=== PATIENT | male | born 1985 | race Caucasian/White ===

== ENCOUNTER → 2024-10-19 | Outpatient (CLI) | payer MEDICARE, OTHER | LOC: M CLY 13:26 | PROVIDERS: ATTEND Physician Assistant Medical | DX: M54.50 Low back pain, unspecified (principal) ==

== ENCOUNTER → 2024-12-08 | Outpatient (REF) | payer MEDICARE, OTHER ==
[2024-12-08 17:39] LABS: BASO # 0.1 10^3/uL (0.0-0.2); BASO % 0.9 % (0.0-1.0); EOS # 0.0 10^3/uL (0.0-0.5); EOS % 0.3 % (0.0-3.0); LYMPH # 1.0 10^3/uL (1.5-5.0); LYMPH % 13.4 % (24.0-44.0); MONO # 0.5 10^3/uL (0.0-0.8); MONO % 6.8 % (2.0-8.0); NEUTROPHILS # 6.0 10^3/uL (1.5-8.5); NEUTROPHILS % 78.3 % (36.0-66.0); PLATELET COUNT, AUTOMATED 215 10^3/uL (150-450)
[2024-12-08 17:41] LABS: IRON (FE) 50 UG/DL (65-175); PERCENT SATURATION 12.6 % (19.7-50.0)
[2024-12-08 17:44] LABS: VITAMIN B12 LEVEL 1395 PG/ML (211-911)
== END ==
LOC: M SFHCCAPE 07:26
PROVIDERS: ATTEND Physician Assistant Medical
DX: D64.9 Anemia, unspecified (principal)

== ENCOUNTER 2025-02-19 07:36 | Day surgery (SDC) | payer MEDICARE, OTHER ==
[~2025-02-19] VITALS: Ht 162.6 cm; Wt 80.3 kg
[~2025-02-19 07:36] MED LIST: ACET650T61 PO; ALLE180T33 PO; D32000TA2 PO; GREEN VIBRANCE PO; LIDOCAINE 2% 100 MG/5 ML SDV (FOR ANES.) As Ordered ONE; MAGN400C2 PO; OMEP40CA4 PO; PEPE50CA PO; [UNRECOGNIZED DRUG - CODE] PO; [UNRECOGNIZED DRUG - CODE] PO; [UNRECOGNIZED DRUG - REMARK] PO; [UNRECOGNIZED DRUG - REMARK] PO; medical marijuana
[2025-02-19 09:35] VITALS: TEMP 97.2
[2025-02-19 10:04] VITALS: BP 123/83; O2SAT 97
== END 2025-02-19 10:12 | disposition home or self-care (01) ==
LOC: M OPP 07:36
PROVIDERS: ATTEND Surgery
DX: K55.20 Angiodysplasia of colon without hemorrhage (principal); B96.81 Helicobacter pylori [H. pylori] as the cause of diseases classified elsewhere; D50.9 Iron deficiency anemia, unspecified; K22.89 Other specified disease of esophagus; K31.89 Other diseases of stomach and duodenum; K31.819 Angiodysplasia of stomach and duodenum without bleeding; R10.13 Epigastric pain; Z88.2 Allergy status to sulfonamides; Z79.899 Other long term (current) drug therapy
CPT/HCPCS: 43239; 43255; 45388; 88305; J3010